=== PATIENT | male | born 1960 | race Caucasian/White ===

== ENCOUNTER 2020-09-02 03:45 | Inpatient (IN) | payer MEDICAID ==
[~2020-09-02] VITALS: Ht 182.9 cm; Wt 109.1 kg
[2020-09-02] MEDS ORDERED: BUPR1FIL3 SL (04:02)
--- NOTE | 2020-09-02 05:18 | NUR ---
Dr. Sandoval at bedside to evaluate Pt. Pt toes are cold and purple and painful, + strong dopplarable PT and DP pulses. Pt voiding in urinal, 300 cc's.
--- NOTE | 2020-09-02 05:29 | NUR ---
dr. horta at bedside for admission,
[2020-09-02] MEDS ORDERED: ondansetron/PF 4mg/2ml inj IV PRN (05:35)
[2020-09-02] MEDS ORDERED: potassium Cl 20 mEq SR tablet PO PRN (05:35)
[2020-09-02] MEDS ORDERED: magnesium 4gm in 100ml NS 100 ML IV PRN (05:35)
[2020-09-02] MEDS ORDERED: magnesium hydroxide 30ml (MOM) UD suspension PO PRN (05:35)
[2020-09-02] MEDS ORDERED: magnesium Cl slow-release 64mg tablet PO PRN (05:35)
[2020-09-02] MEDS ORDERED: magnesium 2GM in 50ml NS 50 ML IV PRN (05:35)
[2020-09-02] MEDS ORDERED: mag hydrox/Alum hydrox/simeth 30ml oral suspension PO PRN (05:35)
[2020-09-02] MEDS ORDERED: potassium CL 10mEq/100ml bag 100 ML IV PRN ×2 (05:35)
[2020-09-02] MEDS ORDERED: acetaminophen 325mg tablet PO PRN (05:35)
[2020-09-02 06:05] LABS: PARTIAL THROMBOPLASTIN TIME 37 SECONDS (22-32)
[2020-09-02] MEDS: rivaroxaban 15mg tablet PO SCH ×2 (07:40→16:51)
[2020-09-02] MEDS: furosemide 40mg/4ml inj IV SCH ×2 (07:40→20:25)
[2020-09-02] MEDS: K and/or MAG REPLACEMENT MC SCH ×2 (08:00→20:00)
[2020-09-02] MEDS: buprenorphine/naloxone 8MG-2MG SUBlingual film SL SCH ×2 (09:35→20:24)
[2020-09-02 12:37] LABS: BASOPHILS # (AUTO) 0.1 X10'3 (0-0.2); BASOPHILS % (AUTO) 0.6 % (0-1); EOSINOPHILS % (AUTO) 0.3 % (0-6); HEMATOCRIT 40.9 % (42.0-52.0); HEMOGLOBIN 13.5 g/dl (14.0-17.9); LYMPHOCYTES # (AUTO) 0.9 X10'3 (1.1-4.8); MEAN CORPUSCULAR HEMOGLOBIN 29.1 PG (27.0-31.0); MEAN CORPUSCULAR HGB CONC 33.1 g/dL (33.0-36.5); MEAN CORPUSCULAR VOLUME 87.9 FL (78-98); MEAN PLATELET VOLUME 8.7 FL (7.4-10.4); MONOCYTES # (AUTO) 0.8 X10'3 (0-0.9); MONOCYTES % (AUTO) 7.6 % (2-12); NEUTROPHILS # (AUTO) 8.6 X10'3 (1.8-7.7); NEUTROPHILS % (AUTO) 82.5 % (42-75); PLATELET COUNT 145 X10'3 (140-440); RED BLOOD COUNT 4.65 X10'6 (4.70-6.10); RED CELL DISTRIBUTION WIDTH 15.3 % (11.5-14.5); WHITE BLOOD COUNT 10.4 X10'3 (4.5-11.0)
[2020-09-02 13:02] LABS: ALANINE AMINOTRANSFERASE 33 U/L (12-78); ALBUMIN 3.2 G/DL (3.4-5.0); ALBUMIN/GLOBULIN RATIO 0.8 (1.1-1.5); ALKALINE PHOSPHATASE 94 IU/L (46-116); ANION GAP 10 (8-16); ASPARTATE AMINO TRANSFERASE 26 U/L (10-37); BILIRUBIN,TOTAL 0.6 MG/DL (0.1-1.0); BLOOD UREA NITROGEN 34 MG/DL (7-18); BUN/CREATININE RATIO 19.7 (5.4-32.0); CALCIUM 8.9 MG/DL (8.5-10.1); CHLORIDE 104 MMOL/L (99-107); CREATININE 1.73 MG/DL (0.60-1.10); GLUCOSE 101 MG/DL (70-104); POTASSIUM 3.6 MMOL/L (3.5-5.1); SODIUM 141 MMOL/L (135-145); TOTAL PROTEIN 7.3 G/DL (6.4-8.2); eGFR 40 ML/MIN
[2020-09-02 14:50] VITALS: BP 198/102
[2020-09-02 15:00] VITALS: BP 168/85
[2020-09-02] MEDS: HYDROcodone/acetaminophen 5mg/325mg tablet PO PRN (16:52)
[2020-09-02 18:00] VITALS: BP 158/99
--- NOTE | 2020-09-02 18:23 | NUR ---
Patient in room [facility] 313. I have received report from Celina PRINGLE and had the opportunity to ask questions and assume patient care.
[2020-09-02 22:00] VITALS: BP 141/82
[2020-09-03] MEDS: HYDROcodone/acetaminophen 5mg/325mg tablet PO PRN ×3 (00:20→23:32)
--- NOTE | 2020-09-03 00:29 | NUR ---
Called MD as patient very restless. New order for :- Ativan 1mg IV q4hr prn anxiety/agitation
[2020-09-03] MEDS: LORazepam 2 mg/ml vial IV PRN (00:44)
[2020-09-03 03:00] VITALS: BP 174/100
--- NOTE | 2020-09-03 03:03 | NUR ---
Patients blood pressure high, 174/100, HR 107. New order for :- clonidine 0.1mg po prn q6h for systolic over 170.
[2020-09-03] MEDS ORDERED: cloNIDine 0.1 mg tablet PO PRN (03:05)
[2020-09-03 06:00] VITALS: BP 166/110
--- NOTE | 2020-09-03 06:28 | NUR ---
Patient in room [facility] 313. I have received report from PINO Olvera and had the opportunity to ask questions and assume patient care.
--- NOTE | 2020-09-03 06:30 | NUR ---
Problems reprioritized. Patient report given, questions answered & plan of care reviewed with Rhina PRINGLE.
[2020-09-03 07:06] LABS: BASOPHILS % (AUTO) 0.4 % (0-1); EOSINOPHILS # (AUTO) 0.1 X10'3 (0-0.9); EOSINOPHILS % (AUTO) 0.6 % (0-6); HEMATOCRIT 39.5 % (42.0-52.0); LYMPHOCYTES # (AUTO) 1.5 X10'3 (1.1-4.8); LYMPHOCYTES % (AUTO) 17.9 % (21-51); MEAN CORPUSCULAR HEMOGLOBIN 29.5 PG (27.0-31.0); MEAN CORPUSCULAR HGB CONC 33.1 g/dL (33.0-36.5); MEAN CORPUSCULAR VOLUME 89.3 FL (78-98); MEAN PLATELET VOLUME 8.4 FL (7.4-10.4); MONOCYTES # (AUTO) 0.7 X10'3 (0-0.9); MONOCYTES % (AUTO) 8.1 % (2-12); NEUTROPHILS # (AUTO) 6.3 X10'3 (1.8-7.7); PLATELET COUNT 152 X10'3 (140-440); RED BLOOD COUNT 4.42 X10'6 (4.70-6.10); RED CELL DISTRIBUTION WIDTH 15.3 % (11.5-14.5); WHITE BLOOD COUNT 8.6 X10'3 (4.5-11.0)
[2020-09-03] MEDS: K and/or MAG REPLACEMENT MC SCH ×2 (07:15→20:00)
[2020-09-03 07:24] LABS: ALANINE AMINOTRANSFERASE 29 U/L (12-78); ALBUMIN 2.9 G/DL (3.4-5.0); ALBUMIN/GLOBULIN RATIO 0.7 (1.1-1.5); ALKALINE PHOSPHATASE 83 IU/L (46-116); ANION GAP 8 (8-16); ASPARTATE AMINO TRANSFERASE 27 U/L (10-37); BILIRUBIN,TOTAL 0.7 MG/DL (0.1-1.0); BLOOD UREA NITROGEN 31 MG/DL (7-18); BUN/CREATININE RATIO 21.2 (5.4-32.0); CHLORIDE 106 MMOL/L (99-107); CREATININE 1.46 MG/DL (0.60-1.10); GLUCOSE 97 MG/DL (70-104); POTASSIUM 3.4 MMOL/L (3.5-5.1); SODIUM 144 MMOL/L (135-145); TOTAL CARBON DIOXIDE 29.6 MMOL/L (24-32); eGFR 49 ML/MIN
[2020-09-03] MEDS: buprenorphine/naloxone 8MG-2MG SUBlingual film SL SCH ×3 (08:00→20:52)
[2020-09-03] MEDS: potassium Cl 20 mEq SR tablet PO PRN ×3 (08:38→17:02)
[2020-09-03] MEDS: furosemide 40mg/4ml inj IV SCH ×2 (08:38→20:53)
[2020-09-03] MEDS: rivaroxaban 15mg tablet PO SCH ×2 (08:38→17:02)
[2020-09-03 11:10] VITALS: BP 140/87
--- NOTE | 2020-09-03 12:43 | NUR ---
Patient refused Suboxone this AM. Now patient asking for his dose. Per Rachelle in pharmacy it is okay to give the AM dose now due to the rule of halves. Non-administration undone and medication was given and documented now.
[2020-09-03 14:48] VITALS: BP 148/79
[2020-09-03] MEDS: ceFAZolin/D5W- 1GM premix 50 ML IV SCH ×2 (16:06→23:33)
[2020-09-03 18:00] VITALS: BP 133/67
--- NOTE | 2020-09-03 18:19 | NUR ---
Problems reprioritized. Patient report given, questions answered & plan of care reviewed with PINO Martinez.
--- NOTE | 2020-09-03 18:21 | NUR ---
Patient in room [facility] 313. I have received report from Rhina PRINGLE and had the opportunity to ask questions and assume patient care.
[2020-09-03 22:00] VITALS: BP 152/95
[2020-09-04 02:00] VITALS: BP 139/91
[2020-09-04] MEDS: HYDROcodone/acetaminophen 5mg/325mg tablet PO PRN ×4 (04:13→21:50)
[2020-09-04 04:49] LABS: BASOPHILS # (AUTO) 0.1 X10'3 (0-0.2); BASOPHILS % (AUTO) 1.2 % (0-1); EOSINOPHILS # (AUTO) 0.1 X10'3 (0-0.9); HEMATOCRIT 40.6 % (42.0-52.0); HEMOGLOBIN 13.6 g/dl (14.0-17.9); LYMPHOCYTES # (AUTO) 1.8 X10'3 (1.1-4.8); LYMPHOCYTES % (AUTO) 19.4 % (21-51); MEAN CORPUSCULAR HEMOGLOBIN 29.6 PG (27.0-31.0); MEAN CORPUSCULAR HGB CONC 33.4 g/dL (33.0-36.5); MEAN CORPUSCULAR VOLUME 88.8 FL (78-98); MEAN PLATELET VOLUME 7.9 FL (7.4-10.4); MONOCYTES # (AUTO) 0.9 X10'3 (0-0.9); MONOCYTES % (AUTO) 9.2 % (2-12); NEUTROPHILS # (AUTO) 6.5 X10'3 (1.8-7.7); NEUTROPHILS % (AUTO) 69.2 % (42-75); PLATELET COUNT 185 X10'3 (140-440); RED BLOOD COUNT 4.58 X10'6 (4.70-6.10); RED CELL DISTRIBUTION WIDTH 14.9 % (11.5-14.5); WHITE BLOOD COUNT 9.3 X10'3 (4.5-11.0)
[2020-09-04 05:16] LABS: ALANINE AMINOTRANSFERASE 29 U/L (12-78); ALBUMIN 2.7 G/DL (3.4-5.0); ALBUMIN/GLOBULIN RATIO 0.7 (1.1-1.5); ALKALINE PHOSPHATASE 82 IU/L (46-116); ANION GAP 5 (8-16); ASPARTATE AMINO TRANSFERASE 24 U/L (10-37); BILIRUBIN,TOTAL 0.5 MG/DL (0.1-1.0); BLOOD UREA NITROGEN 31 MG/DL (7-18); BUN/CREATININE RATIO 18.7 (5.4-32.0); CALCIUM 8.6 MG/DL (8.5-10.1); CHLORIDE 107 MMOL/L (99-107); CREATININE 1.66 MG/DL (0.60-1.10); GLUCOSE 108 MG/DL (70-104); POTASSIUM 3.8 MMOL/L (3.5-5.1); SODIUM 144 MMOL/L (135-145); TOTAL CARBON DIOXIDE 32.4 MMOL/L (24-32); TOTAL PROTEIN 6.8 G/DL (6.4-8.2); eGFR 42 ML/MIN
--- NOTE | 2020-09-04 06:10 | NUR ---
Patient in room [facility] 313. I have received report from Michelle Barboza RN and had the opportunity to ask questions and assume patient care.
--- NOTE | 2020-09-04 06:25 | NUR ---
Problems reprioritized. Patient report given, questions answered & plan of care reviewed with Megan PRINGLE.
[2020-09-04 06:46] VITALS: BP 112/88
[2020-09-04] MEDS: K and/or MAG REPLACEMENT MC SCH ×2 (08:00→20:00)
[2020-09-04] MEDS: furosemide 40mg/4ml inj IV SCH ×2 (09:01→20:01)
[2020-09-04] MEDS: rivaroxaban 15mg tablet PO SCH ×2 (09:01→17:17)
[2020-09-04] MEDS: ceFAZolin/D5W- 1GM premix 50 ML IV SCH ×3 (09:01→23:29)
[2020-09-04] MEDS: buprenorphine/naloxone 8MG-2MG SUBlingual film SL SCH ×2 (09:01→20:01)
[2020-09-04 10:00] VITALS: BP 157/95
--- NOTE | 2020-09-04 13:26 | NUR ---
Spoke with hospitalist regarding US findings provided by the [facility]. Hospitalist stated she would call back regarding the findings.
[2020-09-04] MEDS ORDERED: pneumococcal 23-VAL P-sac vacc 25 mcg/0.5ml vial IMVAC ONE (15:00)
[2020-09-04] MEDS ORDERED: FLU VACC QS2020-21(6MOS UP)/PF 60 MCG/0.5 ML SYRINGE IMVAC ONE (15:00)
[2020-09-04 15:27] VITALS: BP 146/87
[2020-09-04 18:00] VITALS: BP 147/97
--- NOTE | 2020-09-04 18:25 | NUR ---
Problems reprioritized. Patient report given, questions answered & plan of care reviewed with
[2020-09-04] MEDS: lactobacillus rhamnosus 10,000 MMU CELLS/CAPSULE PO SCH (20:01)
[2020-09-04 22:00] VITALS: BP 126/67
[2020-09-05] MEDS: LORazepam 2 mg/ml vial IV PRN ×2 (00:16→10:03)
[2020-09-05 02:00] VITALS: BP 147/86
[2020-09-05 06:00] VITALS: BP 161/97
[2020-09-05 06:17] LABS: MEAN CORPUSCULAR VOLUME 88.8 FL (78-98)
[2020-09-05 06:21] LABS: BASOPHILS # (AUTO) 0.1 X10'3 (0-0.2); BASOPHILS % (AUTO) 0.6 % (0-1); EOSINOPHILS # (AUTO) 0.1 X10'3 (0-0.9); EOSINOPHILS % (AUTO) 1.3 % (0-6); HEMATOCRIT 44.8 % (42.0-52.0); LYMPHOCYTES # (AUTO) 1.6 X10'3 (1.1-4.8); LYMPHOCYTES % (AUTO) 18.6 % (21-51); MEAN CORPUSCULAR HEMOGLOBIN 29.7 PG (27.0-31.0); MEAN CORPUSCULAR HGB CONC 33.4 g/dL (33.0-36.5); MONOCYTES # (AUTO) 0.7 X10'3 (0-0.9); MONOCYTES % (AUTO) 8.4 % (2-12); NEUTROPHILS # (AUTO) 6.2 X10'3 (1.8-7.7); NEUTROPHILS % (AUTO) 71.1 % (42-75); PLATELET COUNT 195 X10'3 (140-440); RED BLOOD COUNT 5.04 X10'6 (4.70-6.10); RED CELL DISTRIBUTION WIDTH 15.3 % (11.5-14.5); WHITE BLOOD COUNT 8.8 X10'3 (4.5-11.0)
--- NOTE | 2020-09-05 06:24 | NUR ---
Problems reprioritized. Patient report given, questions answered & plan of care reviewed with PINO Barlow.
[2020-09-05 06:38] LABS: ALANINE AMINOTRANSFERASE 25 U/L (12-78); ALBUMIN/GLOBULIN RATIO 0.7 (1.1-1.5); ALKALINE PHOSPHATASE 89 IU/L (46-116); ANION GAP 7 (8-16); ASPARTATE AMINO TRANSFERASE 22 U/L (10-37); BILIRUBIN,TOTAL 0.6 MG/DL (0.1-1.0); BLOOD UREA NITROGEN 30 MG/DL (7-18); BUN/CREATININE RATIO 19.1 (5.4-32.0); CALCIUM 9.4 MG/DL (8.5-10.1); CHLORIDE 102 MMOL/L (99-107); CREATININE 1.57 MG/DL (0.60-1.10); GLUCOSE 97 MG/DL (70-104); MAGNESIUM 2.1 MG/DL (1.5-2.4); POTASSIUM 3.9 MMOL/L (3.5-5.1); SODIUM 140 MMOL/L (135-145); TOTAL CARBON DIOXIDE 31.2 MMOL/L (24-32); TOTAL PROTEIN 7.5 G/DL (6.4-8.2); eGFR 45 ML/MIN
--- NOTE | 2020-09-05 06:58 | NUR ---
Patient in room [facility] 313. I have received report from PINO Padron and had the opportunity to ask questions and assume patient care.
[2020-09-05] MEDS: K and/or MAG REPLACEMENT MC SCH (08:00)
[2020-09-05] MEDS: lactobacillus rhamnosus 10,000 MMU CELLS/CAPSULE PO SCH (08:26)
[2020-09-05] MEDS: HYDROcodone/acetaminophen 5mg/325mg tablet PO PRN ×2 (08:26→16:24)
[2020-09-05] MEDS: rivaroxaban 15mg tablet PO SCH ×2 (08:26→16:30)
[2020-09-05] MEDS: buprenorphine/naloxone 8MG-2MG SUBlingual film SL SCH (08:28)
[2020-09-05] MEDS: ceFAZolin/D5W- 1GM premix 50 ML IV SCH ×2 (08:28→16:27)
[2020-09-05] MEDS: furosemide 40mg/4ml inj IV SCH (08:28)
[2020-09-05] MEDS ORDERED: CEPH250T PO (10:54)
[2020-09-05] MEDS ORDERED: RIVA15TA PO (10:54)
[2020-09-05] MEDS ORDERED: LISI10TA4 PO (10:54)
[2020-09-05 11:00] VITALS: BP 102/62
--- NOTE | 2020-09-05 11:52 | NUR ---
pt. has been getting up out of bed to ambulate to the restroom this morning with no known difficulties.
--- NOTE | 2020-09-05 11:52 | NUR ---
PAGER ID: [phone] MESSAGE: [phone]. [id number]. pt. Devon Dawson. elbow xray report is in. also pt. is now refusing to leave today stating that he is too weak to even walk. we have ordered him a PT eval for today.
--- NOTE | 2020-09-05 13:45 | NUR ---
PAGER ID: [phone] MESSAGE: rm [id number]. pt. Devon Dawson. business services analyst is recommending pt. stay till 0300 when he can catch the earliest [employer] to [place]. are you ok with waiting till than for d/c. Yen [phone]
[2020-09-05 15:00] VITALS: BP 106/67
[2020-09-05] MEDS ORDERED: pneumococcal 23-VAL P-sac vacc 25 mcg/0.5ml vial IMVAC ONE (16:20)
[2020-09-05 18:00] VITALS: BP 132/88
--- NOTE | 2020-09-05 18:33 | NUR ---
Problems reprioritized. Patient report given, questions answered & plan of care reviewed with PINO Martinez.
--- NOTE | 2020-09-05 18:39 | NUR ---
Patient in room [facility] 313. I have received report from Yen PRINGLE and had the opportunity to ask questions and assume patient care.
--- NOTE | 2020-09-05 19:00 | NUR ---
Patient discharged with all belongings. Meds stored in pharmacy given to patient. written prescription given to patient. Crutches given and patient wheeled out to yellow cab.
== END 2020-09-05 19:00 | disposition home or self-care (01) | DRG 134 ==
LOC: ER 03:46 → ED HOLD 05:35 → MED 3N 14:50
PROVIDERS: ADMIT Family Medicine; ATTEND Internal Medicine
PROC: 3E0234Z Introduction of Serum, Toxoid and Vaccine into Muscle, Percutaneous Approach (ICD-10-PCS; 2020-09-04)
PROC: 3E02340 Introduction of Influenza Vaccine into Muscle, Percutaneous Approach (ICD-10-PCS; principal; 2020-09-05)
DX: I26.92 Saddle embolus of pulmonary artery without acute cor pulmonale (principal); F11.90 Opioid use, unspecified, uncomplicated; F15.90 Other stimulant use, unspecified, uncomplicated; I73.89 Other specified peripheral vascular diseases; J45.909 Unspecified asthma, uncomplicated; Z20.828 Contact with and (suspected) exposure to other viral communicable diseases; Z59.0 Homelessness; Z79.01 Long term (current) use of anticoagulants; Z87.09 Personal history of other diseases of the respiratory system; Z87.891 Personal history of nicotine dependence; Z23 Encounter for immunization
CPT/HCPCS: 36415; 73070; 80053; 83735; 85025; 85610; 85730; 87081; 90732; 93005; 93308; 93970; 94760; 99285; G0378; J0690; J1940; J2060; Q2039